=== PATIENT | female | born 1985 | race Caucasian/White ===

== ENCOUNTER 2022-07-18 07:03 | Day surgery (SDC) | payer OTHER ==
[~2022-07-18] VITALS: Ht 167.6 cm; Wt 73.0 kg
[2022-07-18 07:07] VITALS: BP 121/95
[2022-07-18 07:19] LABS: HEMATOCRIT 40.6 % (37.0-47.0); HEMOGLOBIN 13.5 g/dl (12.0-16.0); IMMATURE GRANULOCYTES 0.2 % (0.0-5.0); MEAN CELL VOLUME 84.1 fL CALC (80.0-100.0); MEAN CORPUSCULAR HGB CONC 33.3 g/dL CAL (32.0-36.0); NEUT# 4.91 thou/uL (2.00-7.15); RED BLOOD COUNT 4.83 mill/uL (4.20-5.60); RED CELL DISTRI WIDTH 15.4 % (11.5-15.5)
[2022-07-18 07:55] LABS: ALBUMIN 4.1 g/dL (3.2-5.0); ALKALINE PHOSPHATASE 75 u/l (38-126); ANION GAP 9 (6-22 (CALC)); BILIRUBIN, TOTAL 0.4 mg/dL (0.0-1.4); BUN 11 mg/dL (7-17); BUN/CREATININE RATIO 17 (12-20 (CALC)); CARBON DIOXIDE 29 mmol/l (22-30); CHLORIDE 107 mmol/l (95-108); CREATININE 0.6 mg/dL (0.5-1.0); GFR FOR AFR.AMER. > 60 ML/MIN (>=60 (CALC)); GFR OTHER RACES > 60 ML/MIN (>=60 (CALC)); POTASSIUM 4.4 mmol/l (3.5-5.1); SGOT/AST 49 u/l (14-36); SODIUM 140 mmol/l (137-146)
[2022-07-18] MEDS ORDERED: VENTOLIN HFA108 MCG IN (08:10)
[2022-07-18] MEDS ORDERED: LEXAPRO10 MG PO (08:11)
[2022-07-18] MEDS ORDERED: ELFOLATE7.5 MG PO (08:12)
[2022-07-18] MEDS ORDERED: NALTREXONE50 MG PO (14:36)
[2022-07-18] MEDS ORDERED: CLONIDINE0.1 MG PO (14:36)
[2022-07-18] MEDS ORDERED: KLONOPIN2 MG PO (14:37)
[2022-07-18 18:06] VITALS: BP 120/70
[2022-07-18 21:32] VITALS: BP 157/62
[2022-07-18 22:30] VITALS: BP 157/62
[2022-07-19 02:51] VITALS: BP 160/80
[2022-07-19 04:00] VITALS: BP 160/80
[2022-07-19 05:47] LABS: HEMATOCRIT 36.1 % (37.0-47.0); HEMOGLOBIN 12.2 g/dl (12.0-16.0); IMMATURE GRANULOCYTES 0.2 % (0.0-5.0); MEAN CELL VOLUME 82.8 fL CALC (80.0-100.0); MEAN CORPUSCULAR HGB CONC 33.8 g/dL CAL (32.0-36.0); NEUT# 10.33 thou/uL (2.00-7.15); RED BLOOD COUNT 4.36 mill/uL (4.20-5.60); RED CELL DISTRI WIDTH 15.4 % (11.5-15.5)
[2022-07-19 05:59] VITALS: BP 188/161
[2022-07-19 06:00] LABS: ALBUMIN 3.9 g/dL (3.2-5.0); ALKALINE PHOSPHATASE 64 u/l (38-126); ANION GAP 13 (6-22 (CALC)); BILIRUBIN, TOTAL 0.4 mg/dL (0.0-1.4); BUN 11 mg/dL (7-17); BUN/CREATININE RATIO 21 (12-20 (CALC)); CHLORIDE 107 mmol/l (95-108); CREATININE 0.5 mg/dL (0.5-1.0); GFR FOR AFR.AMER. > 60 ML/MIN (>=60 (CALC)); GFR OTHER RACES > 60 ML/MIN (>=60 (CALC)); POTASSIUM 4.1 mmol/l (3.5-5.1); SGOT/AST 40 u/l (14-36); SODIUM 139 mmol/l (137-146); TOTAL PROTEIN 6.6 g/dL (6.3-8.2)
[2022-07-19 06:02] VITALS: BP 151/89
[2022-07-19 06:05] LABS: CARBON DIOXIDE 23 mmol/l (22-30)
[2022-07-19 07:30] VITALS: BP 151/77
[2022-07-19 09:25] VITALS: BP 151/77
== END 2022-07-19 15:45 | disposition home or self-care (01) | DRG 897 ==
LOC: ANR 07:03 → MS2 07:03 → ANR 09:00
PROVIDERS: ATTEND Anesthesiology
DX: F11.20 Opioid dependence, uncomplicated (principal)
CPT/HCPCS: J2354